=== PATIENT | female | born 1940 | race Hispanic/Latino ===

== ENCOUNTER 2017-01-27 14:47 | Emergency (ER) | payer MEDICARE, OTHER ==
[~2017-01-27] VITALS: Ht 152.4 cm; Wt 56.4 kg
[2017-01-27 15:05] VITALS: BP 147/73; PULSE 50; RESP 16; O2SAT 99
[2017-01-27 15:48] LABS: APPEARANCE,URINE CLEAR (CLEAR,HAZY); COLOR,URINE STRAW (YELLOW); OCCULT BLOOD,URINE TRACE (NEGATIVE); UROBILINOGEN,URINE NORMAL (NORMAL)
--- NOTE | 2017-01-27 16:47 | DRSVH ---
PROCEDURE: X-RAY LUMBAR SPINE, 2 OR 3 VIEW INDICATIONS: new-onset back pain TECHNIQUE: 3 views of the lumbar spine were acquired. COMPARISON: None. FINDINGS: Bones: 5 [id number] vertebrae are present. There is normal bony alignment. No vertebral body compression fractures. No suspicious bony lesions. Osteopenia. Facet joint hypertrophy. Soft tissues: Overlying bowel gas pattern is normal. No suspicious soft tissue calcifications. Vas cular calcifications. IMPRESSION: No acute fractures or dislocations. Osteopenia. Degenerative changes. Dictated by: Azeem Sam M.D. on 01/27/2017 at 16:44 Approved by: Azeem Sam M.D. on 01/27/2017 at 16:45
[2017-01-27 18:03] VITALS: BP 153/75; PULSE 50; RESP 20; O2SAT 99
--- NOTE | 2017-01-27 18:10 | DRSVH ---
PROCEDURE: CT KUB ([id number]) INDICATIONS: left flank pain TECHNIQUE: Noncontrast 5 mm thick sections acquired from the diaphragms to the symphysis. 5 mm thick coronal an d sagittal reformats were then performed. For radiation dose reduction, the following was used: aut omated exposure control, adjustment of mA and/or kV according to patient size. COMPARISON: , CR, XR LUMBAR SPINE 2 OR 3VW, 01/27/2017, 16:30. FINDINGS: Image quality: Excellent. Lung bases: Lung bases are clear. Heart size is normal. Urinary system: Both kidneys are normal in size. No kidney stones. No hydronephrosis or perinephri c fat stranding. Both ureters appear non-dilated throughout their expected courses. Bladder wall th ickness is normal; no calcified bladder stones. Other solid organs: Liver and spleen are normal in size. Gallbladder is not seen and presumably has been removed. The extrahepatic biliary tree is prominent in size. Correlation with laboratory values would be useful to confirm that obstruction is not occurring. Pancreas is normal in contours. No ad renal nodules. Peritoneum and bowel: Unenhanced bowel loops demonstrate normal wall thickness and caliber. No free fluid or air. Nodes and vessels: No retroperitoneal or mesenteric adenopathy by size criteria. Aorta and inferior vena cava are normal in caliber. Abdominal wall: No ventral hernias. Pelvis: No free pelvic fluid. No inguinal hernias or adenopathy. Uterus has been removed. Neither ovary is identified. Presumably it has been removed. Bones: No suspicious bony lesions. No vertebral body compression fractures. IMPRESSION: Cause of left sided pain is not identified. Kidneys are normal in appearance. Uterus has been removed neither ovary is seen. No diverticula or inflammatory changes are seen. There is a generous extrahepatic biliary tree in this patient with probable cholecystectomy. Confirma tion of lack of obstruction chemically/by lab work would be useful. Dictated by: Luis Eduardo Juan M.D. on 01/27/2017 at 18:00 Approved by: Luis Eduardo Juan M.D. on 01/27/2017 at 18:08
--- NOTE | 2017-01-27 18:31 | ED.REPORT ---
HPI-Back Pain 40 and Over Date of Service Jan 27, 2017 ED Provider: Kaden Constantino PA-C Ely is a 76-year-old female with a history of osteopenia, PE, osteoarthritis who presents to the emergency department with a chief complaint of left back pain. Patient reports worsening left back pain over the last 2 weeks most prominently on the left side. Patient reports that she moved here from [place] during that time and suspects she injured her back packing. She is also concerned of pulmonary embolus. She denies a history of back pain. Denies numbness, tingling, weakness or pain in lower extremity. Denies fever, DM, HIV, organ transplant, immunosuppression, recent surgery, recent infection, history of back surgery, surgical implants and IV drug use. Denies bowel/bladder dysfunction and saddle anesthesia. Denies history of cancer, urinary symptoms, trauma. Denies cough, wheeze, shortness of breath, chest pain, hemoptysis, leg swelling, exogenous estrogen. Patient states her last INR was 2.7 Nursing Notes Stated Complaint: PAIN IN LOWER RIGHT BACK/MID Chief Complaint: Back Pain or Injury Nursing Notes Reviewed: Yes Allergies: Coded Allergies: tramadol (Verified Allergy, Severe, 01/27/17) Sulfa (Sulfonamide Antibiotics) (Verified Allergy, Unknown, 01/27/17) codeine (Verified Allergy, Unknown, 01/27/17) ibuprofen (Verified Allergy, Unknown, 01/27/17) morphine (Verified Allergy, Unknown, 01/27/17) pseudoephedrine (Verified Allergy, Unknown, 01/27/17) General Time Seen by MD: 15:44 Chief Complaint Flank pain left Sudden in Onset?: No Past Medical History Past Medical History High blood pressure PE Hypothyroid Osteopenia Review of Systems Review of Systems Note: Negative unless stated otherwise in history of present illness Physical Exam General: Well appearing, well developed, well nourished, no acute distress. Head: Atraumatic, normocephalic. Eyes: No scleral icterus or injection. No discharge. Vision grossly intact. ENT: Voice clear, hearing grossly intact. Respiratory: Regular rate and rhythm. Breath sounds present, clear to auscultation and equal bilaterally. No respiratory distress. No increased work of breathing, speaks in complete sentences. Cardiovascular: Regular rate and rhythm, without murmur, gallop or rub. No pedal edema. Gastrointestinal: Abdomen flat and non-tender without guarding or rebound. Bowel sounds normoactive. Skin: Warm and dry. Back: Normal to inspection. Left flank tender to light pressure. Negative midline spinous process tenderness, right flank tenderness. Legs: Diameter equal [id number]. No calf tenderness. Negative Homans sign. DP and PT pulses 2+. Neurological: Hip flexion, knee extension, ankle dorsiflexion and plantarflexion strength 5/5 B/L. Patellar and Achilles reflexes present and equal B/L. Sensation to sharp touch intact at medial leg, dorsal foot and lateral foot B/L. negative straight leg raise, negative cross straight leg raise. Psychological: Alert and oriented. Speech appropriate, linear and logical. Behavior appropriate. Initial Vital Signs Vital Signs (First) Date Time Temp Pulse Resp B/P Pulse Ox O2 Delivery O2 Flow Rate FiO2 01/27/17 15:05 37.2 50 16 147/73 99 Room Air Bradycardia, elevated blood pressure Interpretation & Diagnostics Interpretation & Diagnostics: PROCEDURE: CT KUB ([id number]) INDICATIONS: left flank pain IMPRESSION: Cause of left sided pain is not identified. Kidneys are normal in appearance. Uterus has been removed neither ovary is seen. No diverticula or inflammatory changes are seen. There is a generous extrahepatic biliary tree in this patient with probable cholecystectomy. Confirmation of lack of obstruction chemically/by lab work would be useful. Lab Results Interpretation Test 01/27/17 14:35 01/27/17 15:15 Urine Color Straw (YELLOW) Urine Appearance Clear (CLEAR,HAZY) Urine pH 7.0 (5.0-8.0) Urine Specific Treece 1.010 (1.003-1.035) Urine Protein Negativemg/dL (NEG,TRACE) Urine Glucose (UA) Negativemg/dL (NEGATIVE) Urine Ketones Negativemg/dL (NEGATIVE) Urine Occult Blood Trace (NEGATIVE) Urine Nitrite Negative (NEGATIVE) Urine Bilirubin Negative (NEGATIVE) Urine Urobilinogen Normalmg/dL (NORMAL) Urine Leukocyte Esterase Negative (NEGATIVE) Urine RBC 0-2/hpf (0-2) Urine WBC 0-5/hpf (0-5) Urine Epithelial Cells Occasional/hpf (NONE-MOD) Urine Crystals None seen (NONE SEEN) Urine Bacteria Few/hpf (NONE-FEW) Urine Hyaline Casts None/lpf (NONE) Urine Granular Casts None seen (NONE SEEN) Urine Waxy Casts None seen (NONE SEEN) Urine Red Blood Cell Casts None seen (NONE SEEN) Urine White Blood Cell Casts None seen (NONE SEEN) Urine Mucus None seen (None Seen) Urine Trichomonas None seen (NONE SEEN) Urine Yeast None (NONE SEEN) Urinalysis Comment None Urine Culture Reflexed Not indicated Hold Urine Received (Received) X-Ray Interpretation Xray Interpretation: PROCEDURE: X-RAY LUMBAR SPINE, 2 OR 3 VIEW INDICATIONS: new-onset back pain IMPRESSION: No acute fractures or dislocations. Osteopenia. Degenerative changes. Interpretation / Wet Read by: Interpret - Radiologist Re-Eval/Medical Decision Med Decision/Clinical Course 76-year-old female has emergency department with chief complaint of back pain worsening over the last 2 weeks, primarily on the left side. Denies red flag history. Physical examination reveals tenderness in the left flank, otherwise benign with negative midline spinous process tenderness, soft abdomen. Negative leg swelling, calf tenderness, Homans sign. At this point I am reassured against the patient's concern for pulmonary embolus. I feel she is very low risk with no evidence of DVT, no chest pain, cough, hemoptysis or shortness of breath, and reported INR of 2.7. Patient further states that this pain is not similar to her previous PE. I do have some concern for pyelonephritis, kidney stone, compression fracture. Plain films of lumbar spine are ordered and negative for fracture. Urinalysis is positive only for trace hematuria. CT KUB is ordered after consultation with Dr. Wallace. This does not reveal source for her flank pain. I am reassured against acute disc herniation, cauda equina, infection, hematoma , trauma, pyelonephritis, nephrolithiasis, AAA, cancer. I believe this is musculoskeletal back pain. Patient responds well to 650 mg of Tylenol, feels prepared to be discharged to home. Advised regarding primary care follow-up, provided emergency return precautions. Patient verbalized understanding of, and consent to, the plan. Discharge & Departure Impression: Primary Impression: Low back pain Chronicity: acute Back pain laterality: left Sciatica presence: without sciatica Qualified Code: M54.5 - Low back pain Disposition: Home Discharge Condition All VS Reviewed: Yes Condition: Stable Patient Instructions: Acute Low Back Pain (ED), Sciatica (ED) Additional Instructions: Evaluation in the emergency department for lower back pain. History and physical are reassuring for emergent neurological condition. Your neurological examination is normal, indicating there is no damage to the nerves in your back. X-ray and CT scan are reassuring against fractures or kidney stones. I believe this is musculoskeletal back pain. Treatment is largely symptomatic. Rest is important, especially for the next couple of days, but avoid total bed rest. Reasonable activity as tolerated is the best. Apply ice to the affected area 4 times a day for 20 minutes over the next 24 hours. After that you will probably find warm compresses most helpful. The pain is best treated with acetaminophen. You can take 650 mg every 6 hours. It will be helpful if you do this on a schedule, whether your back hurts or not , for the next week or so. Most of all be patient: 70-90% of people with injuries presenting like yours will resolve within 7 weeks, even without treatment. Follow-up with your primary care provider in the next week or two to be sure your recovery is progressing as expected. Return the emergency department for new or worsening symptoms such as loss of bowel/bladder control, numbness between your legs, new weakness/numbness or high fever. Referrals: NOPCP (PCP) Jacky Reyes MD EDSupervising Provider for APC: Farooq Ford DO copies to: Jacky Reyes MD, Seth PA-C Jan 27, 2017 18:31
[2017-01-27 18:48] VITALS: BP 160/82; PULSE 53; RESP 20; O2SAT 97
== END 2017-01-27 18:49 | disposition home or self-care (01) ==
LOC: SED 14:47
DX: M54.5 Low back pain (principal); I10 Essential (primary) hypertension; E03.9 Hypothyroidism, unspecified; Z88.2 Allergy status to sulfonamides; Z88.5 Allergy status to narcotic agent; Z88.6 Allergy status to analgesic agent; R00.1 Bradycardia, unspecified; Z88.8 Allergy status to other drugs, medicaments and biological substances